=== PATIENT | male | born 1985 | race Caucasian/White ===

== ENCOUNTER 2017-03-19 16:01 | Emergency (ER) | payer SELFPAY ==
--- NOTE | 2017-03-19 16:53 | EDM.PDOC ---
ED HPI GENERAL MEDICAL PROBLEM - General Chief Complaint: Fever Stated Complaint: COLD,COUGHING Time Seen by Provider: 03/19/17 16:16 - History of Present Illness INITIAL COMMENTS - FREE TEXT/NARRATIVE: HISTORY AND PHYSICAL: History of present illness: Patient is a 31-year-old white male presents with concern of congestion and body aches sore throat states she's been exposed influenza A that his sister had he denies influenza immunization status had tactile fever denies vomiting or diarrhea Review of systems: As per history of present illness and below otherwise all systems reviewed and negative. Past medical history: As per history of present illness and as reviewed below otherwise noncontributory. Surgical history: As per history of present illness and as reviewed below otherwise noncontributory. Social history: No reported history of drug or alcohol abuse. Family history: As per history of present illness and as reviewed below otherwise noncontributory. Physical exam: HEENT: Atraumatic, normocephalic, pupils reactive, negative for conjunctival pallor or scleral icterus, mucous membranes moist, throat injected no pustular exudates, neck supple, nontender, trachea midline. Lungs: Clear to auscultation, breath sounds equal bilaterally, chest nontender. Heart: S1S2, regular, negative for clicks, rubs, or JVD. Abdomen: Soft, nondistended, nontender. Negative for masses or hepatosplenomegaly. Negative for costovertebral tenderness. Pelvis: Stable nontender. Genitourinary: Deferred. Rectal: Deferred. Extremities: Atraumatic, negative for cords or calf pain. Neurovascular unremarkable. Neuro: Awake, alert, oriented. Cranial nerves II through XII unremarkable. Cerebellum unremarkable. Motor and sensory unremarkable throughout. Exam nonfocal. Diagnostics: Influenza screen rapid strep Therapeutics: None Impression: #1 viral syndrome Definitive disposition and diagnosis as appropriate pending reevaluation and review of above. - Related Data Allergies Allergy/AdvReac Type Severity Reaction Status Date / Time No Known Allergies Allergy Verified 03/19/17 16:51 Home Meds: Home Meds . [No Known Home Meds] 03/19/17 [History] Past Medical History - Past Health History Medical/Surgical History: Denies Medical/Surgical History HEENT History: Reports: None Cardiovascular History: Reports: None Respiratory History: Reports: None Gastrointestinal History: Reports: None Genitourinary History: Reports: None Musculoskeletal History: Reports: Other (See Below) Other Musculoskeletal History: spine sx, degerative dsk dse. Neurological History: Reports: None Psychiatric History: Reports: Anxiety, Depression Hematologic History: Reports: None Immunologic History: Reports: None Oncologic (Cancer) History: Reports: None Dermatologic History: Reports: None - Infectious Disease History Infectious Disease History: Reports: None - Past Surgical History Head Surgeries/Procedures: Reports: None HEENT Surgical History: Reports: None Cardiovascular Surgical History: Reports: None GI Surgical History: Reports: None Musculoskeletal Surgical History: Reports: None Social & Family History - Tobacco Use Smoking Status *Q: Current Some Day Smoker Years of Tobacco use: 15 Packs/Tins Daily: 0.3 - Alcohol Use Days Per Week of Alcohol Use: 1 Number of Drinks Per Day: 2 Total Drinks Per Week: 2 - Recreational Drug Use Recreational Drug Use: Yes Drug Use in Last 12 Months: Yes Recreational Drug Type: Reports: Amphetamines (Speed), Marijuana/Hashish ED ROS GENERAL - Review of Systems Review Of Systems: ROS reveals no pertinent complaints other than HPI. ED EXAM, GENERAL - Physical Exam Exam: See Below (See dictation) Course - Vital Signs Last Recorded V/S: Last Vital Signs Temp 35.9 C 03/19/17 16:51 Pulse 101 H 03/19/17 16:51 Resp 18 03/19/17 16:51 BP 134/81 03/19/17 16:51 Pulse Ox 97 03/19/17 16:51 - Orders/Labs/Meds Orders: Active Orders 24 hr Category Date Time Status CULTURE STREP A CONFIRMATION [RM] Stat Lab 03/19/17 16:57 Results STREP SCRN A RAPID W CULT CONF [RM] Stat Lab 03/19/17 16:57 Results Departure - Departure Time of Disposition: 18:04 Disposition: Home, Self-Care 01 Condition: Good Clinical Impression: Influenza - Discharge Information Referrals: PCP,None [Primary Care Provider] - Forms: ED Department Discharge Additional Instructions: The following information is given to patients seen in the emergency department who are being discharged to home. This information is to outline your options for follow-up care. We provide all patients seen in our emergency department with a follow-up referral. The need for follow-up, as well as the timing and circumstances, are variable depending upon the specifics of your emergency department visit. If you don't have a primary care physician on staff, we will provide you with a referral. We always advise you to contact your personal physician following an emergency department visit to inform them of the circumstance of the visit and for follow-up with them and/or the need for any referrals to a consulting specialist. The emergency department will also refer you to a specialist when appropriate. This referral assures that you have the opportunity for followup care with a specialist. All of these measure are taken in an effort to provide you with optimal care, which includes your followup. Under all circumstances we always encourage you to contact your private physician who remains a resource for coordinating your care. When calling for followup care, please make the office aware that this follow-up is from your recent emergency room visit. If for any reason you are refused follow-up, please contact the [facility] emergency department at and asked to speak to the emergency department charge nurse. Tamiflu as prescribed push fluids Motrin and Tylenol as directed and return as needed as discussed - My Orders Last 24 Hours: My Active Orders 03/19/17 16:57 CULTURE STREP A CONFIRMATION [RM] Stat STREP SCRN A RAPID W CULT CONF [RM] Stat - Assessment/Plan Last 24 Hours: My Active Orders 03/19/17 16:57 CULTURE STREP A CONFIRMATION [RM] Stat STREP SCRN A RAPID W CULT CONF [] Stat
[2017-03-19 18:21] VITALS: BP 122/78
== END 2017-03-19 18:18 | disposition home or self-care (01) ==
LOC: MW.ED 16:01
DX: J10.1 Influenza due to other identified influenza virus with other respiratory manifestations (principal); B34.9 Viral infection, unspecified; F17.210 Nicotine dependence, cigarettes, uncomplicated
CPT/HCPCS: 87081; 87804; 87880; 99283

== ENCOUNTER 2018-11-13 10:08 | Emergency (ER) | payer SELFPAY ==
[2018-11-13] MEDS ORDERED: Sodium Chloride 0.9% 2.5 ML Syringe FLUSH PRN ×2 (10:41)
[2018-11-13] MEDS ORDERED: Sodium Chloride 0.9% 10 ML Syringe FLUSH PRN ×2 (10:41)
[2018-11-13] MEDS ORDERED: diphenhydrAMINE 50 MG/ML SDV IVPUSH ONE (10:41)
[2018-11-13] MEDS ORDERED: Ondansetron 4 MG/2 ML SDV IVPUSH ONE (10:41)
[2018-11-13] MEDS ORDERED: Sodium Chloride 0.9% 1,000 ML IV ONE (10:41)
[2018-11-13] MEDS ORDERED: Ketorolac 30 MG/ML SDV IVPUSH ONE (10:41)
[2018-11-13] MEDS ORDERED: Metoclopramide 10 MG/2 ML SDV IVPUSH ONE (10:41)
--- NOTE | 2018-11-13 10:41 | EDM.PDOC ---
ED HPI GENERAL MEDICAL PROBLEM - General Chief Complaint: Headache Stated Complaint: MIGRAINE Time Seen by Provider: 11/13/18 10:41 Source of Information: Reports: Patient History Limitations: Reports: No Limitations - History of Present Illness INITIAL COMMENTS - FREE TEXT/NARRATIVE: HISTORY AND PHYSICAL: History of present illness: Patient is a 32-year-old male presents to the ED with complaint migraine x 4 days. Patient states he has had headaches like this many times in the past but has never actually been diagnosed with migraines. He states he's been taking exedrin, tylenol, ibuprofen without relief. He states he has throbbing pain starting in the left occiput radiating up the side of his head and behind the eye. He states the throbbing is worse with walking, he has photophobia, and had nausea and vomiting 2 days ago. He denies head or neck injury, fevers, chills. Review of systems: As per history of present illness and below otherwise all systems reviewed and negative. Past medical history: As per history of present illness and as reviewed below otherwise noncontributory. Surgical history: As per history of present illness and as reviewed below otherwise noncontributory. Social history: No reported history of drug or alcohol abuse. Family history: As per history of present illness and as reviewed below otherwise noncontributory. Physical exam: General: Patient sitting comfortably in no acute distress and nontoxic appearing HEENT: Atraumatic, normocephalic, pupils reactive, negative for conjunctival pallor or scleral icterus, mucous membranes moist, throat clear, neck supple, nontender, trachea midline. No meningeal signs. Lungs: Clear to auscultation, breath sounds equal bilaterally, chest nontender. Heart: S1S2, regular, negative for clicks, rubs, or overt murmur. Abdomen: Soft, nondistended, nontender. Negative for masses or hepatosplenomegaly. Negative for costovertebral tenderness. No rigidity, rebound , guarding. Pelvis: Stable nontender. Genitourinary: Deferred. Rectal: Deferred. Extremities: Atraumatic, negative for cords or calf pain. Neurovascular unremarkable. Neuro: Awake, alert, oriented. Cranial nerves II through XII unremarkable. Cerebellum unremarkable. Motor and sensory unremarkable throughout. Exam nonfocal. Notes: Diagnostics: none Therapeutics: 1L NS IV 4mg Zofran IV 10mg Reglan IV 50mg Benadryl IV 30mg Toradol IV Prescriptions: Impression: Headache Plan: Rest and drink plenty of fluids and alternate Tylenol and Motrin as needed Follow-up with primary care provider Return to ED as needed as discussed Definitive disposition and diagnosis as appropriate pending reevaluation and review of above. Headache Pain Score (Numeric/FACES): 9 - Related Data Allergies Allergy/AdvReac Type Severity Reaction Status Date / Time No Known Allergies Allergy Verified 11/13/18 10:33 Home Meds: Home Meds . [No Known Home Meds] 03/19/17 [History] Past Medical History - Past Health History Medical/Surgical History: Denies Medical/Surgical History HEENT History: Reports: None Cardiovascular History: Reports: None Respiratory History: Reports: None Gastrointestinal History: Reports: None Genitourinary History: Reports: None Musculoskeletal History: Reports: Other (See Below) Other Musculoskeletal History: spine sx, degerative dsk dse. Neurological History: Reports: None Psychiatric History: Reports: Anxiety, Depression Hematologic History: Reports: None Immunologic History: Reports: None Oncologic (Cancer) History: Reports: None Dermatologic History: Reports: None - Infectious Disease History Infectious Disease History: Reports: None - Past Surgical History Head Surgeries/Procedures: Reports: None HEENT Surgical History: Reports: None Cardiovascular Surgical History: Reports: None GI Surgical History: Reports: None Musculoskeletal Surgical History: Reports: None Social & Family History - Family History Family Medical History: Noncontributory - Tobacco Use Smoking Status *Q: Current Every Day Smoker Years of Tobacco use: 15 Packs/Tins Daily: 0.5 - Caffeine Use Caffeine Use: Reports: Coffee - Recreational Drug Use Recreational Drug Use: No ED ROS GENERAL - Review of Systems Review Of Systems: ROS reveals no pertinent complaints other than HPI. - Physical Exam Exam: See Below (see dictation) Course - Vital Signs Last Recorded V/S: Last Vital Signs Temp 96.9 F 11/13/18 10:33 Pulse 86 11/13/18 10:33 Resp 18 11/13/18 10:33 BP 162/95 H 11/13/18 10:33 Pulse Ox 99 11/13/18 10:33 - Orders/Labs/Meds Orders: Active Orders 24 hr Category Date Time Status Sodium Chloride 0.9% [Normal Saline] 1,000 ml Med 11/13/18 10:41 Active IV STAT Sodium Chloride 0.9% [Saline Flush] Med 11/13/18 10:41 Active 10 ml FLUSH ASDIRECTED PRN Sodium Chloride 0.9% [Saline Flush] Med 11/13/18 10:41 Active 10 ml FLUSH ASDIRECTED PRN Sodium Chloride 0.9% [Saline Flush] Med 11/13/18 10:41 Active 2.5 ml FLUSH ASDIRECTED PRN Sodium Chloride 0.9% [Saline Flush] Med 11/13/18 10:41 Active 2.5 ml FLUSH ASDIRECTED PRN Saline Lock Insert [OM.PC] Stat Oth 11/13/18 10:41 Ordered Medication Orders Sodium Chloride (Normal Saline) 1,000 mls @ 999 mls/hr IV STAT ONE Stop: 11/13/18 11:41 Last Admin: 11/13/18 10:47 Dose: 999 mls/hr Sodium Chloride (Saline Flush) 10 ml FLUSH ASDIRECTED PRN PRN Reason: Keep Vein Open Last Admin: 11/13/18 10:49 Dose: 10 ml Sodium Chloride (Saline Flush) 2.5 ml FLUSH ASDIRECTED PRN PRN Reason: Keep Vein Open Last Admin: 11/13/18 10:49 Dose: 2.5 ml Sodium Chloride (Saline Flush) 10 ml FLUSH ASDIRECTED PRN PRN Reason: Keep Vein Open Last Admin: 11/13/18 10:49 Dose: 10 ml Sodium Chloride (Saline Flush) 2.5 ml FLUSH ASDIRECTED PRN PRN Reason: Keep Vein Open Last Admin: 11/13/18 10:50 Dose: 2.5 ml Meds: Medications Generic Name Dose Route Start Last Admin Trade Name Freq PRN Reason Stop Dose Admin Sodium Chloride 1,000 mls @ 999 mls/hr 11/13/18 10:41 11/13/18 10:47 Normal Saline IV 11/13/18 11:41 999 mls/hr STAT ONE Administration Sodium Chloride 10 ml 11/13/18 10:41 11/13/18 10:49 Saline Flush FLUSH 10 ml ASDIRECTED PRN Administration Keep Vein Open Sodium Chloride 2.5 ml 11/13/18 10:41 11/13/18 10:49 Saline Flush FLUSH 2.5 ml ASDIRECTED PRN Administration Keep Vein Open Sodium Chloride 10 ml 11/13/18 10:41 11/13/18 10:49 Saline Flush FLUSH 10 ml ASDIRECTED PRN Administration Keep Vein Open Sodium Chloride 2.5 ml 11/13/18 10:41 11/13/18 10:50 Saline Flush FLUSH 2.5 ml ASDIRECTED PRN Administration Keep Vein Open Discontinued Medications Generic Name Dose Route Start Last Admin Trade Name Jeff PRN Reason Stop Dose Admin Diphenhydramine HCl 25 mg 11/13/18 10:41 11/13/18 10:49 Benadryl IVPUSH 11/13/18 10:42 25 mg ONETIME ONE Administration Ketorolac Tromethamine 30 mg 11/13/18 10:41 11/13/18 10:48 Toradol IVPUSH 11/13/18 10:42 30 mg ONETIME ONE Administration Metoclopramide HCl 10 mg 11/13/18 10:41 11/13/18 10:48 Reglan IVPUSH 11/13/18 10:42 10 mg ONETIME ONE Administration Ondansetron HCl 4 mg 11/13/18 10:41 11/13/18 10:48 Zofran IVPUSH 11/13/18 10:42 4 mg ONETIME ONE Administration Departure - Departure Time of Disposition: 11:28 Disposition: Home, Self-Care 01 Condition: Good Clinical Impression: Headache - Discharge Information Referrals: PCP,None [Primary Care Provider] - Forms: ED Department Discharge Additional Instructions: The following information is given to patients seen in the emergency department who are being discharged to home. This information is to outline your options for follow-up care. We provide all patients seen in our emergency department with a follow-up referral. The need for follow-up, as well as the timing and circumstances, are variable depending upon the specifics of your emergency department visit. If you don't have a primary care physician on staff, we will provide you with a referral. We always advise you to contact your personal physician following an emergency department visit to inform them of the circumstance of the visit and for follow-up with them and/or the need for any referrals to a consulting specialist. The emergency department will also refer you to a specialist when appropriate. This referral assures that you have the opportunity for follow-up care with a specialist. All of these measure are taken in an effort to provide you with optimal care, which includes your follow-up. Under all circumstances we always encourage you to contact your private physician who remains a resource for coordinating your care. When calling for follow-up care, please make the office aware that this follow-up is from your recent emergency room visit. If for any reason you are refused follow-up, please contact the [facility] Emergency Department at and asked to speak to the emergency department charge nurse. [facility] [address] [place] [address] [id number] [address] [id number] Rest and drink plenty of fluids and alternate Tylenol and Motrin as needed Follow-up with primary care provider Return to ED as needed as discussed - My Orders Last 24 Hours: My Active Orders 11/13/18 10:41 Sodium Chloride 0.9% [Normal Saline] 1,000 ml IV STAT Sodium Chloride 0.9% [Saline Flush] 10 ml FLUSH ASDIRECTED PRN Sodium Chloride 0.9% [Saline Flush] 10 ml FLUSH ASDIRECTED PRN Sodium Chloride 0.9% [Saline Flush] 2.5 ml FLUSH ASDIRECTED PRN Sodium Chloride 0.9% [Saline Flush] 2.5 ml FLUSH ASDIRECTED PRN Saline Lock Insert [OM.PC] Stat - Assessment/Plan Last 24 Hours: My Active Orders 11/13/18 10:41 Sodium Chloride 0.9% [Normal Saline] 1,000 ml IV STAT Sodium Chloride 0.9% [Saline Flush] 10 ml FLUSH ASDIRECTED PRN Sodium Chloride 0.9% [Saline Flush] 10 ml FLUSH ASDIRECTED PRN Sodium Chloride 0.9% [Saline Flush] 2.5 ml FLUSH ASDIRECTED PRN Sodium Chloride 0.9% [Saline Flush] 2.5 ml FLUSH ASDIRECTED PRN Saline Lock Insert [OM.PC] Stat
[2018-11-13 11:30] VITALS: BP 127/89; PULSE 72
== END 2018-11-13 11:34 | disposition home or self-care (01) ==
LOC: MW.ED 10:08
DX: R51 Headache (principal); F17.210 Nicotine dependence, cigarettes, uncomplicated
CPT/HCPCS: 96361; 96374; 96375; 99283; J1200; J1885; J2405; J2765; J7040

== ENCOUNTER 2020-01-16 10:02 | Emergency (ER) | payer SELFPAY ==
[2020-01-16] MEDS ORDERED: Lidocaine 1% 10 ML MDV INJECT ONE (10:33)
--- NOTE | 2020-01-16 10:53 | EDM.PDOC ---
ED HPI GENERAL MEDICAL PROBLEM - General Chief Complaint: General Stated Complaint: ABSCESS LOWER PELVIC AREA Time Seen by Provider: 01/16/20 10:08 Source of Information: Reports: Patient History Limitations: Reports: No Limitations - History of Present Illness INITIAL COMMENTS - FREE TEXT/NARRATIVE: Presents reporting a skin abscess on his lower abdomen. He has had skin absce sses over the the perineal area in the past. On this occasion, he had what sounds like a pustule which he incised and drained on his own last night. The patient shaves his perineal area and has numerous diminutive folliculitis scabs. He is otherwise healthy without chronic medical problems except hypertension. He does not treat his hypertension. Does not have diabetes. He smokes cigarettes. No fevers, chills, nausea. left index finger Pain Score (Numeric/FACES): 5 - Related Data Allergies Allergy/AdvReac Type Severity Reaction Status Date / Time No Known Allergies Allergy Verified 01/16/20 10:19 Home Meds: Home Meds Clindamycin HCl 1 cap PO TID #30 capsule 01/16/20 [Rx] Mupirocin [Centany] 30 gm TP BID #1 tube 01/16/20 [Rx] Past Medical History - Past Health History Medical/Surgical History: Denies Medical/Surgical History HEENT History: Reports: None Cardiovascular History: Reports: Hypertension Respiratory History: Reports: None Gastrointestinal History: Reports: None Genitourinary History: Reports: None Musculoskeletal History: Reports: Other (See Below) Other Musculoskeletal History: spine sx, degerative dsk dse. Neurological History: Reports: None Psychiatric History: Reports: Anxiety, Depression Hematologic History: Reports: None Immunologic History: Reports: None Oncologic (Cancer) History: Reports: None Dermatologic History: Reports: None - Infectious Disease History Infectious Disease History: Reports: None - Past Surgical History Head Surgeries/Procedures: Reports: None HEENT Surgical History: Reports: None Cardiovascular Surgical History: Reports: None GI Surgical History: Reports: None Musculoskeletal Surgical History: Reports: None Social & Family History - Family History Family Medical History: No Pertinent Family History - Caffeine Use Caffeine Use: Reports: Coffee - Recreational Drug Use Recreational Drug Use: No ED ROS GENERAL - Review of Systems Review Of Systems: Comprehensive ROS is negative, except as noted in HPI. ED EXAM, GENERAL - Physical Exam Exam: See Below Exam Limited By: No Limitations General Appearance: Alert, Mild Distress (due to pain) Ears: Normal External Exam Nose: Normal Inspection Throat/Mouth: Normal Inspection Head: Atraumatic, Normocephalic Neck: Normal Inspection Respiratory/Chest: No Respiratory Distress Cardiovascular: Normal Peripheral Pulses GI/Abdominal: Normal Bowel Sounds Extremities: Normal Inspection Neurological: Alert, Oriented Psychiatric: Normal Affect, Normal Mood Skin Exam: Warm, Dry, Normal Color, Rash (shaved perineum. Numerous diminuative folliculitis dry scabs.), Other (along the line of the upper public hair: 6cm firm erythematous, tender swelling without fluctuance. Center 0.5cm open area without drainage.) ED I&D PROCEDURES - I&D Site: lower abdomen Skin prep: Isopropyl Alcohol (Alcohol) Local anesthesia - Lidocaine (Xylocaine): 1% Plain Local Anesthetic Volume: 4cc Area Incised With: 11 Blade Drainage: Bloody Probed to Break Up Loculations: Yes Packed With: None Progress/Comments: blood drainage, no purulent, probed Course - Vital Signs Last Recorded V/S: Last Vital Signs Temp 36.1 C 01/16/20 10:23 Pulse 119 H 01/16/20 10:23 Resp 16 01/16/20 10:23 BP 150/96 H 01/16/20 10:23 Pulse Ox 100 01/16/20 10:23 - Orders/Labs/Meds Meds: Medications Discontinued Medications Generic Name Dose Route Start Last Admin Trade Name Jeff PRN Reason Stop Dose Admin Lidocaine HCl 10 ml 01/16/20 10:33 01/16/20 10:37 Xylocaine 1% INJECT 01/16/20 10:34 Not Given ONETIME ONE Lidocaine HCl 10 ml 01/16/20 10:37 Xylocaine-Mpf 1% INJECT 01/16/20 10:38 ONETIME ONE Departure - Departure Time of Disposition: 11:09 Disposition: Home, Self-Care 01 Condition: Good Clinical Impression: Abscess, Folliculitis - Discharge Information *PRESCRIPTION DRUG MONITORING PROGRAM REVIEWED*: Not Applicable *COPY OF PRESCRIPTION DRUG MONITORING REPORT IN PATIENT MARCIA: Not Applicable Instructions: Preventing MDRO Infections Referrals: PCP,None [Primary Care Provider] - [facility] [Outside] [facility] [Outside] Additional Instructions: The following information is given to patients seen in the emergency department who are being discharged to home. This information is to outline your options for follow-up care. We provide all patients seen in our emergency department with a follow-up referral. The need for follow-up, as well as the timing and circumstances, are variable depending upon the specifics of your emergency department visit. If you don't have a primary care physician on staff, we will provide you with a referral. We always advise you to contact your personal physician following an emergency department visit to inform them of the circumstance of the visit and for follow-up with them and/or the need for any referrals to a consulting specialist. The emergency department will also refer you to a specialist when appropriate. This referral assures that you have the opportunity for follow-up care with a specialist. All of these measure are taken in an effort to provide you with optimal care, which includes your follow-up. Under all circumstances we always encourage you to contact your private physician who remains a resource for coordinating your care. When calling for follow-up care, please make the office aware that this follow-up is from your recent emergency room visit. If for any reason you are refused follow-up, please contact the [facility] Emergency Department at and asked to speak to the emergency department charge nurse. 1. Take your antibiotic 3 times a day starting today when you pick it up. 2. Warm moist packs or warm shower to affected area 3-4 times a day for 20 minutes 3. Refrain from shaving pelvic area. Do not touch the skin abscess or folliculitis scabs. 4. MRSA eradication instructions after abscess is healed: 1. Wash entire body in shower with chlorhexidine (ask at Pharmacy) daily. 2. Wear fresh clothing daily. Launder in hot water and dry in the dryer. 3. Wipe down all surfaces in your home and auto, cell phone, commonly used items with bleach water or chlorhexidine. 4. Apply mupirocin to posterior nares with cotton tipped applicator twice a day. 5. Others in your household and pets should be treated as well. Sepsis Event Note (ED) - Evaluation Sepsis Screening Result: No Definite Risk - Focused Exam Vital Signs: Vital Signs Temp Pulse Resp BP Pulse Ox 01/16/20 10:23 36.1 C 119 H 16 150/96 H 100 11/17/20 10:21 36.1 C 131 H 16 150/96 H
[2020-01-16 11:32] VITALS: BP 158/103; PULSE 120
== END 2020-01-16 11:36 | disposition home or self-care (01) ==
LOC: MW.ED 10:02
DX: L02.211 Cutaneous abscess of abdominal wall (principal); L73.9 Follicular disorder, unspecified; I10 Essential (primary) hypertension; F17.210 Nicotine dependence, cigarettes, uncomplicated
CPT/HCPCS: 10060; 99282; J2001

== ENCOUNTER 2020-03-31 17:29 | Emergency (ER) | payer SELFPAY ==
--- NOTE | 2020-03-31 17:34 | EDM.PDOC ---
ED HPI GENERAL MEDICAL PROBLEM - General Chief Complaint: Back Pain or Injury Stated Complaint: MEDICAL CLEARANCE Time Seen by Provider: 03/31/20 17:30 Source of Information: Reports: Patient History Limitations: Reports: No Limitations - History of Present Illness INITIAL COMMENTS - FREE TEXT/NARRATIVE: 34-year-old male past medical history substance abuse, chronic low back pain presents for medical clearance for incarceration. 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 He has followed up with a neurosurgeon in the past and been told that he needs surgery but he does not want to have surgery. Patient states that he is worried about going into opioid withdrawal when he goes to penit[facility]. Lower Back Pain Score (Numeric/FACES): 8 - Related Data Allergies Allergy/AdvReac Type Severity Reaction Status Date / Time No Known Allergies Allergy Verified 03/31/20 17:41 Home Meds: Home Meds . [No Known Home Meds] 03/31/20 [History] Past Medical History - Past Health History Medical/Surgical History: Denies Medical/Surgical History HEENT History: Reports: None Cardiovascular History: Reports: Hypertension Respiratory History: Reports: None Gastrointestinal History: Reports: None Genitourinary History: Reports: None Musculoskeletal History: Reports: Other (See Below) Other Musculoskeletal History: spine sx, degerative dsk dse. Neurological History: Reports: None Psychiatric History: Reports: Anxiety, Depression Hematologic History: Reports: None Immunologic History: Reports: None Oncologic (Cancer) History: Reports: None Dermatologic History: Reports: None - Infectious Disease History Infectious Disease History: Reports: None - Past Surgical History Head Surgeries/Procedures: Reports: None HEENT Surgical History: Reports: None Cardiovascular Surgical History: Reports: None GI Surgical History: Reports: None Musculoskeletal Surgical History: Reports: None Social & Family History - Family History Family Medical History: No Pertinent Family History - Caffeine Use Caffeine Use: Reports: Coffee ED ROS GENERAL - Review of Systems Review Of Systems: Comprehensive ROS is negative, except as noted in HPI. ED EXAM, GENERAL - Physical Exam Exam: See Below Exam Limited By: No Limitations General Appearance: Alert, WD/WN, No Apparent Distress Throat/Mouth: Normal Voice, No Airway Compromise Head: Atraumatic, Normocephalic Neck: Normal Inspection Respiratory/Chest: No Respiratory Distress, No Accessory Muscle Use Cardiovascular: Normal Peripheral Pulses, Regular Rate, Rhythm Extremities: Normal Inspection Neurological: Alert, Normal Gait Psychiatric: Normal Affect, Normal Mood Skin Exam: Warm, Dry, Intact, Normal Color Course - Vital Signs Last Recorded V/S: Last Vital Signs Temp 98.2 F 03/31/20 17:41 Pulse 100 03/31/20 17:41 Resp 18 03/31/20 17:41 BP 169/98 H 03/31/20 17:41 Pulse Ox 100 03/31/20 17:41 - Orders/Labs/Meds Orders: Active Orders 24 hr Category Date Time Status Acetaminophen/oxyCODONE [Percocet 325-5 MG] Med 03/31/20 17:45 Once 2 tab PO ONETIME ONE Meds: Medications Discontinued Medications Generic Name Dose Route Start Last Admin Trade Name Jeff PRN Reason Stop Dose Admin Oxycodone/Acetaminophen 2 tab 03/31/20 17:45 Percocet 325-5 Mg PO 03/31/20 17:46 ONETIME ONE - Re-Assessments/Exams Free Text/Narrative Re-Assessment/Exam: 03/31/20 17:35 Patient presents for chronic back pain and medical clearance. No evidence of acute pathology. Will discharge with PMD follow-up. Patient is fit for confinement. Will give 10 mg Percocet in the emergency department to help with withdrawal symptoms and with chronic low back pain. Departure - Departure Time of Disposition: 17:35 Disposition: DC/Tfer to Court of Law En 21 Condition: Good Clinical Impression: Chronic back pain Qualifiers: Back pain location: low back pain Back pain laterality: unspecified Sciatica presence: unspecified whether sciatica present Qualified Code(s): M54.5 - Low back pain - Discharge Information Instructions: Chronic Back Pain, [id number] Referrals: PCP,None [Primary Care Provider] - Forms: ED Department Discharge Additional Instructions: The following information is given to patients seen in the emergency department who are being discharged to home. This information is to outline your options for follow-up care. We provide all patients seen in our emergency department with a follow-up referral. The need for follow-up, as well as the timing and circumstances, are variable depending upon the specifics of your emergency department visit. If you don't have a primary care physician on staff, we will provide you with a referral. We always advise you to contact your personal physician following an emergency department visit to inform them of the circumstance of the visit and for follow-up with them and/or the need for any referrals to a consulting specialist. The emergency department will also refer you to a specialist when appropriate. This referral assures that you have the opportunity for follow-up care with a specialist. All of these measure are taken in an effort to provide you with optimal care, which includes your follow-up. Under all circumstances we always encourage you to contact your private physician who remains a resource for coordinating your care. When calling for follow-up care, please make the office aware that this follow-up is from your recent emergency room visit. If for any reason you are refused follow-up, please contact the [facility] Emergency Department at and asked to speak to the emergency department charge nurse. Please follow up with your primary care physician. If you do not have a primary care physician, see below: [facility] [address] [place] [id number] [facility] [address] [place] [id number] [facility] [address] [place] [id number] Sepsis Event Note (ED) - Focused Exam Vital Signs: Vital Signs Temp Pulse Resp BP Pulse Ox 03/31/20 17:41 98.2 F 100 18 169/98 H 100 - My Orders Last 24 Hours: My Active Orders 03/31/20 17:45 Acetaminophen/oxyCODONE [Percocet 325-5 MG] 2 tab PO ONETIME ONE - Assessment/Plan Last 24 Hours: My Active Orders 03/31/20 17:45 Acetaminophen/oxyCODONE [Percocet 325-5 MG] 2 tab PO ONETIME ONE
[2020-03-31 17:43] VITALS: BP 169/98; PULSE 100
[2020-03-31] MEDS ORDERED: Acetaminophen/oxyCODONE 325-5 MG Tab PO ONE (17:45)
== END 2020-03-31 17:56 ==
LOC: MW.ED 17:29
DX: M54.5 Low back pain (principal); G89.29 Other chronic pain; I10 Essential (primary) hypertension
CPT/HCPCS: 99283; A9270

== ENCOUNTER 2020-05-18 22:48 | Emergency (ER) | payer SELFPAY ==
[2020-05-18] MEDS ORDERED: Clindamycin HCl 150 MG Cap PO ONE (23:50)
[2020-05-18] MEDS ORDERED: Ketorolac 30 MG/ML SDV IM ONE (23:50)
--- NOTE | 2020-05-18 23:56 | EDM.PDOC ---
ED HPI GENERAL MEDICAL PROBLEM - General Chief Complaint: ENT Problem Stated Complaint: ABCESS TOOTH Time Seen by Provider: 05/18/20 23:11 - History of Present Illness INITIAL COMMENTS - FREE TEXT/NARRATIVE: History of present illness: [] Is chronic carious teeth with pain. For the last day or 2 has began to have swelling about the left side of his face and pain around his ear. The patient has multiple caries but he points to tooth #11 and says that that one hurts now. Is little puffiness under the left eye. He has no trismus or trouble handling secretions or voice change. He has no history of a heart murmur. Review of systems: As per history of present illness and below otherwise all systems reviewed and negative. Past medical history: As per history of present illness and as reviewed below otherwise noncontr ibutory. Surgical history: As per history of present illness and as reviewed below otherwise noncontributory. Social history: No reported history of drug or alcohol abuse. Family history: As per history of present illness and as reviewed below otherwise noncontributory. Physical exam: Constitutional - well developed, well-nourished and in no acute distress HEENT -we will carious and missing teeth. Tenderness around tooth #10 and 11.. Normocephalic, no evidence of trauma - external nose and mouth normal - no mass in neck and no JVD - mucosae moist erythema and swelling over the zygoma on the left. EYES - full EOM, PERRL, no icterus - no evidence of inflammation, injection, or drainage Respiratory - no respiratory distress, equal bilateral expansion, lungs clear to auscultation and no abnormal lung sounds Cardiovascular - Regular Rhythm with S1 and S2 appreciated and no murmur, gallop or rub. Musculoskeletal no gross deformity of long bones or joints - no tenderness, swelling or edema Neurologic - Alert and oriented times four - CN II-XII grossly intact - motor sensory and coordination symmetrically normal Psychiatric - appropriate mood and affect with normal thought content Hematologic - No petechiae or purpura - mucosa appropriate color and sclera not pale - normal nail bed color and refill Integument - no rash or evidence of trauma - normal turgor Diagnostics: [] Therapeutics: [] Impression: [] Plan: [] Definitive disposition and diagnosis as appropriate pending reevaluation and review of above. left jaw Pain Score (Numeric/FACES): 9 - Related Data Allergies Allergy/AdvReac Type Severity Reaction Status Date / Time No Known Allergies Allergy Verified 05/18/20 23:14 Home Meds: Home Meds Acetaminophen/Codeine [Tylenol with Codeine No.3 300MG/30MG] 2 tab PO Q4H PRN #14 tab 05/18/20 [Rx] Clindamycin HCl 300 mg PO TID #30 capsule 05/18/20 [Rx] Past Medical History - Past Health History Medical/Surgical History: Denies Medical/Surgical History HEENT History: Reports: None Cardiovascular History: Reports: Hypertension Respiratory History: Reports: None Gastrointestinal History: Reports: None Genitourinary History: Reports: None Musculoskeletal History: Reports: Other (See Below) Other Musculoskeletal History: spine sx, degerative dsk dse. Neurological History: Reports: None Psychiatric History: Reports: Anxiety, Depression Hematologic History: Reports: None Immunologic History: Reports: None Oncologic (Cancer) History: Reports: None Dermatologic History: Reports: None - Infectious Disease History Infectious Disease History: Reports: None - Past Surgical History Head Surgeries/Procedures: Reports: None HEENT Surgical History: Reports: None Cardiovascular Surgical History: Reports: None GI Surgical History: Reports: None Musculoskeletal Surgical History: Reports: None Social & Family History - Family History Family Medical History: No Pertinent Family History - Tobacco Use Packs/Tins Daily: 1 - Caffeine Use Caffeine Use: Reports: None - Recreational Drug Use Recreational Drug Use: No ED ROS GENERAL - Review of Systems Review Of Systems: Comprehensive ROS is negative, except as noted in HPI. ED EXAM, GENERAL - Physical Exam Exam: See Below Free Text/Narrative:: My physical exam is in the HPI Course - Vital Signs Last Recorded V/S: Last Vital Signs Temp 36.8 C 05/18/20 23:10 Pulse 110 H 05/18/20 23:10 Resp 18 05/18/20 23:10 BP 142/89 H 05/18/20 23:10 Pulse Ox 98 05/18/20 23:10 - Orders/Labs/Meds Meds: Medications Discontinued Medications Generic Name Dose Route Start Last Admin Trade Name Freq PRN Reason Stop Dose Admin Clindamycin HCl 300 mg 05/18/20 23:50 Clindamycin Hcl 150 Mg Cap PO 05/18/20 23:51 ONETIME ONE Ketorolac Tromethamine 30 mg 05/18/20 23:50 Ketorolac 30 Mg/Ml Sdv IM 05/18/20 23:51 ONETIME ONE Departure - Departure Time of Disposition: 23:53 Disposition: Home, Self-Care 01 Condition: Good Clinical Impression: Caries, Periodontal disease, Dentalgia - Discharge Information Prescriptions: Clindamycin HCl 300 mg PO TID #30 capsule Acetaminophen/Codeine [Tylenol with Codeine No.3 300MG/30MG] 2 tab PO Q4H PRN #14 tab PRN Reason: Pain (Moderate 4-6) Instructions: Acute Pain, Adult Referrals: PCP,None [Primary Care Provider] - Additional Instructions: See dentist as soon as possible. If your face swells more or you have trouble opening your mouth or breathing or talking you should return immediately as an emergency. [facility] [address] [place] [address] [place] [address] The following information is given to patients seen in the emergency department who are being discharged to home. This information is to outline your options for follow-up care. We provide all patients seen in our emergency department with a follow-up referral. The need for follow-up, as well as the timing and circumstances, are variable depending upon the specifics of your emergency department visit. If you don't have a primary care physician on staff, we will provide you with a referral. We always advise you to contact your personal physician following an emergency department visit to inform them of the circumstance of the visit and for follow-up with them and/or the need for any referrals to a consulting specialist. The emergency department will also refer you to a specialist when appropriate. This referral assures that you have the opportunity for follow-up care with a specialist. All of these measure are taken in an effort to provide you with optimal care, which includes your follow-up. Under all circumstances we always encourage you to contact your private physician who remains a resource for coordinating your care. When calling for follow-up care, please make the office aware that this follow-up is from your recent emergency room visit. If for any reason you are refused follow-up, please contact the [facility] Emergency Department at and asked to speak to the emergency department charge nurse. Sepsis Event Note (ED) - Evaluation Sepsis Screening Result: No Definite Risk - Focused Exam Vital Signs: Vital Signs Temp Pulse Resp BP Pulse Ox 05/18/20 23:10 36.8 C 110 H 18 142/89 H 98
[2020-05-19 00:10] VITALS: BP 135/101; PULSE 105
== END 2020-05-19 00:04 | disposition home or self-care (01) ==
LOC: MW.ED 22:48
DX: K02.9 Dental caries, unspecified (principal); I10 Essential (primary) hypertension; Z72.0 Tobacco use
CPT/HCPCS: 96372; 99282; A9270; J1885; 99283

== ENCOUNTER 2021-02-04 13:19 | Emergency (ER) | payer OTHER ==
[2021-02-04 14:01] VITALS: BP 164/138; PULSE 104
--- NOTE | 2021-02-04 14:38 | EDM.PDOC ---
ED HPI GENERAL MEDICAL PROBLEM - General Chief Complaint: ENT Problem Stated Complaint: SORE NOSE Time Seen by Provider: 02/04/21 13:59 Source of Information: Reports: Patient History Limitations: Reports: No Limitations - History of Present Illness INITIAL COMMENTS - FREE TEXT/NARRATIVE: Patient is a 35-year-old female presents today for possible dental abscess. Patient's been having difficulty seeing for the past few years and cannot see a dentist because of insurance issue. States he has no swelling to the upper gumline. States she has noted difficulty eating or drinking or swallowing. Gums Pain Score (Numeric/FACES): 4 - Related Data Allergies Allergy/AdvReac Type Severity Reaction Status Date / Time No Known Allergies Allergy Verified 02/04/21 13:56 Home Meds: Home Meds . [No Known Home Meds] 02/04/21 [History] Past Medical History - Past Health History Medical/Surgical History: Denies Medical/Surgical History HEENT History: Reports: None Cardiovascular History: Reports: Hypertension Respiratory History: Reports: None Gastrointestinal History: Reports: None Genitourinary History: Reports: None Musculoskeletal History: Reports: Other (See Below) Other Musculoskeletal History: spine sx, degerative dsk dse. Neurological History: Reports: None Psychiatric History: Reports: Anxiety, Depression Hematologic History: Reports: None Immunologic History: Reports: None Oncologic (Cancer) History: Reports: None Dermatologic History: Reports: None - Infectious Disease History Infectious Disease History: Reports: None - Past Surgical History Head Surgeries/Procedures: Reports: None HEENT Surgical History: Reports: None Cardiovascular Surgical History: Reports: None GI Surgical History: Reports: None Musculoskeletal Surgical History: Reports: None Social & Family History - Family History Family Medical History: No Pertinent Family History - Caffeine Use Caffeine Use: Reports: None - Recreational Drug Use Recreational Drug Use: No ED ROS ENT - Review of Systems Review Of Systems: See Below Constitutional: Reports: No Symptoms HEENT: Reports: Dental Pain Respiratory: Reports: No Symptoms Endocrine: Reports: No Symptoms GI/Abdominal: Reports: No Symptoms : Reports: No Symptoms Musculoskeletal: Reports: No Symptoms Skin: Reports: No Symptoms Neurological: Reports: No Symptoms Psychiatric: Reports: No Symptoms Hematologic/Lymphatic: Reports: No Symptoms Immunologic: Reports: No Symptoms ED EXAM, ENT - Physical Exam Exam: See Below Exam Limited By: No Limitations General Appearance: Alert, WD/WN, No Apparent Distress Eye Exam: Bilateral Eye: EOMI Mouth/Throat: Normal Inspection, Dental Pain, Dental Tenderness. No: Normal Gums, Normal Lips Neck: Normal Inspection Respiratory/Chest: No Respiratory Distress Neurological: Alert, Oriented, Normal Cognition, Normal Gait Course - Vital Signs Last Recorded V/S: Last Vital Signs Temp 98.6 F 02/04/21 13:57 Pulse 104 H 02/04/21 13:57 Resp 16 02/04/21 13:57 BP 164/138 H 02/04/21 13:57 Pulse Ox 99 02/04/21 13:57 Departure - Departure Time of Disposition: 14:37 Disposition: Home, Self-Care 01 Condition: Good Clinical Impression: Dental abscess - Discharge Information *PRESCRIPTION DRUG MONITORING PROGRAM REVIEWED*: Not Applicable *COPY OF PRESCRIPTION DRUG MONITORING REPORT IN PATIENT MARCIA: Not Applicable Instructions: Dental Abscess, [id number] Referrals: PCP,None [Primary Care Provider] - Additional Instructions: You were seen today for dental pain. We recommend that you follow-up with a dentist. The ER can only do limited things for you here you need to see a dentist to have this treated and taken care of. We will prescribe the antibiotic you can take in the interim continue to follow-up with your dentist. If you have any other concerning signs or symptoms please refer to return to the ED. The following information is given to patients seen in the emergency department who are being discharged to home. This information is to outline your options for follow-up care. We provide all patients seen in our emergency department with a follow-up referral. The need for follow-up, as well as the timing and circumstances, are variable depending upon the specifics of your emergency department visit. If you don't have a primary care physician on staff, we will provide you with a referral. We always advise you to contact your personal physician following an emergency department visit to inform them of the circumstance of the visit and for follow-up with them and/or the need for any referrals to a consulting specialist. The emergency department will also refer you to a specialist when appropriate. This referral assures that you have the opportunity for follow-up care with a specialist. All of these measure are taken in an effort to provide you with optimal care, which includes your follow-up. Under all circumstances we always encourage you to contact your private physician who remains a resource for coordinating your care. When calling for follow-up care, please make the office aware that this follow-up is from your recent emergency room visit. If for any reason you are refused follow-up, please contact the [facility] Emergency Department at and asked to speak to the emergency department charge nurse. Please follow up with your primary care physician. If you do not have a primary care physician, see below: [facility] [address] [place] [id number] [facility] [address] [place] [id number] Sepsis Event Note (ED) - Evaluation Sepsis Screening Result: No Definite Risk - Focused Exam Vital Signs: Vital Signs Temp Pulse Resp BP Pulse Ox 02/04/21 13:57 98.6 F 104 H 16 164/138 H 99 - Assessment/Plan Plan: Patient is a 35-year-old male presents today for dental pain. Patient looks to have a dental abscess. Will prescribe antibiotics and try to refer patient to the dentist to assist.
== END 2021-02-04 15:10 | disposition home or self-care (01) ==
LOC: MW.ED 13:19
DX: K04.7 Periapical abscess without sinus (principal)
CPT/HCPCS: 99282

== ENCOUNTER 2021-06-29 21:01 | Emergency (ER) | payer MEDICAID ==
[2021-06-29] MEDS ORDERED: Aspirin 81 MG Tab.Chew PO ONE (21:08)
[2021-06-29 22:02] LABS: BLOOD UREA NITROGEN,BUN 13 mg/dL (7.0-18.0); CARBON DIOXIDE,CO2 27.7 mmol/L (21.0-32.0); CHLORIDE,CL 105 mmol/L (98-107); GLUCOSE RANDOM 78 mg/dL (74-106); POTASSIUM,K 4.3 mmol/L (3.5-5.1); SODIUM,NA 143 mmol/L (136-148)
[2021-06-29 23:33] VITALS: BP 127/82; PULSE 98
== END 2021-06-29 23:33 | disposition home or self-care (01) ==
LOC: MW.ED 21:01
DX: R07.89 Other chest pain (principal); I10 Essential (primary) hypertension
CPT/HCPCS: 36415; 71045; 80053; 83735; 84484; 85025; 85610; 93005; 99285; A9270

== ENCOUNTER 2021-09-05 14:41 | Emergency (ER) | payer MEDICAID ==
[2021-09-05 15:37] VITALS: BP 149/99; PULSE 96
== END 2021-09-05 15:34 ==
LOC: MW.ED 14:41
DX: I10 Essential (primary) hypertension (principal)
CPT/HCPCS: 99283

== ENCOUNTER 2021-09-12 20:05 | Inpatient (IN) | payer MEDICAID ==
[2021-09-12] MEDS ORDERED: Sodium Chloride 0.9% 2.5 ML Syringe FLUSH PRN (20:28)
[2021-09-12] MEDS ORDERED: Sodium Chloride 0.9% 10 ML Syringe FLUSH PRN (20:28)
[2021-09-12] MEDS ORDERED: Piperacillin/Tazobactam 4.5 GM in Sodium Chloride 0.9% 100 ML IV ONE (20:29)
[2021-09-12] MEDS ORDERED: Sodium Chloride 0.9% 1,000 ML IV ONE (20:29)
[2021-09-12] MEDS ORDERED: Morphine 4 MG/ML VIAL IVPUSH ONE (20:32)
[2021-09-12] MEDS ORDERED: VANCOmycin 1.75 GM/350 ML 1.75 GM in Premix Bag 1 BAG IV ONE (21:30)
[2021-09-12 21:43] LABS: CARBON DIOXIDE,CO2 26.5 mmol/L (21.0-32.0); POTASSIUM,K 3.6 mmol/L (3.5-5.1)
[2021-09-12] MEDS ORDERED: Iopamidol 755 MG/ML 500 ML Multipack Bottle IVPUSH ONE (22:14)
[2021-09-12] MEDS ORDERED: Lidocaine/Epineph/Tetracaine 3 ML Syringe TOP ONE (22:56)
[2021-09-12] MEDS ORDERED: HYDROmorphone 1 MG/ML Syringe IVPUSH ONE (22:56)
[2021-09-12] MEDS ORDERED: Lidocaine 1% 5 ML VIAL INJECT ONE (22:57)
[2021-09-13] MEDS ORDERED: Sodium Chloride 0.9% 1,000 ML IV ONE ×2 (00:40)
[2021-09-13] MEDS ORDERED: Albuterol/Ipratropium 3.0-0.5 MG/3 ML Neb Soln NEB PRN (00:54)
[2021-09-13] MEDS ORDERED: Ondansetron 4 MG/2 ML SDV IVPUSH PRN (00:54)
[2021-09-13] MEDS: Pantoprazole 40 MG in Sodium Chloride 0.9% 10 ML IVPUSH SCH (02:07)
[2021-09-13] MEDS: Enoxaparin 40 MG/0.4 ML Syringe SUBCUT SCH (02:12)
[2021-09-13] MEDS: Acetaminophen 325 MG Tab PO PRN (02:31)
[2021-09-13] MEDS: Piperacillin/Tazobactam 3.375 GM in Sodium Chloride 0.9% 50 ML IV SCH ×3 (03:08→20:00)
[2021-09-13] MEDS: Lactated Ringers 1,000 ML IV SCH ×2 (03:48→13:46)
[2021-09-13] MEDS: Morphine 2 MG/ML SYRINGE IVPUSH PRN ×3 (05:16→16:25)
[2021-09-13 06:05] LABS: HEMOGLOBIN A1C 5.6 %
[2021-09-13 06:06] LABS: CARBON DIOXIDE,CO2 26.6 mmol/L (21.0-32.0); POTASSIUM,K 3.6 mmol/L (3.5-5.1)
[2021-09-14] MEDS: Enoxaparin 40 MG/0.4 ML Syringe SUBCUT SCH (00:03)
[2021-09-14] MEDS: Pantoprazole 40 MG in Sodium Chloride 0.9% 10 ML IVPUSH SCH (00:03)
[2021-09-14] MEDS: Lactated Ringers 1,000 ML IV SCH ×2 (00:04→09:40)
[2021-09-14] MEDS: Morphine 2 MG/ML SYRINGE IVPUSH PRN ×4 (00:14→21:27)
[2021-09-14] MEDS: Piperacillin/Tazobactam 3.375 GM in Sodium Chloride 0.9% 50 ML IV SCH ×3 (04:24→20:41)
[2021-09-14] MEDS: Acetaminophen 325 MG Tab PO PRN (05:49)
[2021-09-14 06:19] LABS: CARBON DIOXIDE,CO2 26.7 mmol/L (21.0-32.0)
[2021-09-14] MEDS: VANCOmycin 1.5 GM/300 ML 1.5 GM in Premix Bag 1 BAG IV SCH ×2 (09:36→21:31)
[2021-09-14] MEDS ORDERED: Ondansetron 4 MG/2 ML SDV IVPUSH PRN (11:52)
[2021-09-14] MEDS ORDERED: Albuterol 0.083% 2.5 MG/3 ML Neb Soln NEB PRN (11:52)
[2021-09-14] MEDS ORDERED: Metoclopramide 10 MG/2 ML SDV IVPUSH PRN (11:52)
[2021-09-14] MEDS ORDERED: Morphine 4 MG/ML VIAL IVPUSH PRN (11:52)
[2021-09-14] MEDS ORDERED: fentaNYL 50 MCG/ML SDV IVPUSH PRN (11:52)
[2021-09-14] MEDS ORDERED: HYDROmorphone 1 MG/ML Syringe IVPUSH PRN (11:52)
[2021-09-14] MEDS ORDERED: Naloxone 0.4 MG/ML SDV IVPUSH PRN (11:52)
[2021-09-14] MEDS ORDERED: fentaNYL 100 MCG/2 ML SDV ONE (13:34)
[2021-09-14] MEDS ORDERED: propofoL 0 ML ONE (13:34)
[2021-09-14] MEDS ORDERED: Lidocaine 2% 5 ML SDV ONE (13:35)
[2021-09-14] MEDS ORDERED: Propofol 200 MG/20 ML SDV ONE ×2 (13:35)
[2021-09-14] MEDS ORDERED: Succinylcholine/Sod PF 100 MG/5 ML SYRINGE IV ONE (13:35)
[2021-09-14] MEDS ORDERED: Ondansetron 4 MG/2 ML SDV ONE (13:38)
[2021-09-14] MEDS ORDERED: Bupivacaine 0.5% 10 ML SDV ONE (13:53)
[2021-09-14] MEDS ORDERED: Chloroprocaine 10 MG/ML 5 ML Amp ONE (13:54)
[2021-09-14] MEDS ORDERED: Midazolam 1 MG/ML 2 ML SDV ONE (13:58)
[2021-09-14] MEDS ORDERED: Dexmedetomidine 200 MCG/2 ML SDV ONE (14:08)
[2021-09-14] MEDS ORDERED: Water For Injection, Sterile 20 ML ONE ×2 (14:08→14:09)
[2021-09-14] MEDS ORDERED: Glycopyrrolate 0.2 MG/ML SDV ONE (14:13)
[2021-09-15] MEDS: Enoxaparin 40 MG/0.4 ML Syringe SUBCUT SCH (00:18)
[2021-09-15] MEDS: Pantoprazole 40 MG in Sodium Chloride 0.9% 10 ML IVPUSH SCH (00:18)
[2021-09-15] MEDS: Lactated Ringers 1,000 ML IV SCH (00:18)
[2021-09-15] MEDS: Morphine 2 MG/ML SYRINGE IVPUSH PRN ×2 (02:16→08:18)
[2021-09-15] MEDS: Piperacillin/Tazobactam 3.375 GM in Sodium Chloride 0.9% 50 ML IV SCH (03:36)
[2021-09-15 06:12] LABS: CARBON DIOXIDE,CO2 25.3 mmol/L (21.0-32.0); POTASSIUM,K 3.9 mmol/L (3.5-5.1)
[2021-09-15] MEDS ORDERED: oxyCODONE 5 MG Tab PO PRN (08:41)
[2021-09-15] MEDS ORDERED: Sodium Chloride 0.9% 10 ML Syringe FLUSH PRN (08:48)
[2021-09-15] MEDS ORDERED: Sodium Chloride 0.9% 2.5 ML Syringe FLUSH PRN (08:48)
[2021-09-15] MEDS ORDERED: Docusate Sodium 100 MG Cap PO SCH (09:00)
[2021-09-15] MEDS: VANCOmycin 1.5 GM/300 ML 1.5 GM in Premix Bag 1 BAG IV SCH (09:30)
[2021-09-15] MEDS ORDERED: Piperacillin/Tazobactam 3.375 GM in Sodium Chloride 0.9% 50 ML IV SCH (10:00)
[2021-09-15 11:42] VITALS: BP 119/90; PULSE 82
== END 2021-09-15 13:00 | disposition home or self-care (01) | DRG 872 ==
LOC: MW.ED 20:05 → MW.MS 09-13 00:39 → EEVIPCON 09-13 00:39
PROVIDERS: ADMIT Student in an Organized Health Care Education/Training Program; ATTEND Student in an Organized Health Care Education/Training Program
PROC: 0Y900ZZ Drainage of Right Buttock, Open Approach (ICD-10-PCS; principal; 2021-09-13)
PROC: 0J990ZZ Drainage of Buttock Subcutaneous Tissue and Fascia, Open Approach (ICD-10-PCS; 2021-09-14)
PROC: 0J9B0ZZ Drainage of Perineum Subcutaneous Tissue and Fascia, Open Approach (ICD-10-PCS; 2021-09-14)
DX: A41.9 Sepsis, unspecified organism (principal); K61.0 Anal abscess; L02.215 Cutaneous abscess of perineum; L03.317 Cellulitis of buttock; F17.210 Nicotine dependence, cigarettes, uncomplicated; I10 Essential (primary) hypertension; G43.909 Migraine, unspecified, not intractable, without status migrainosus; F41.9 Anxiety disorder, unspecified; F32.A Depression, unspecified; F19.10 Other psychoactive substance abuse, uncomplicated; Z87.442 Personal history of urinary calculi
CPT/HCPCS: 00902; 10060; 36415; 74177; 74177-26; 80048; 80053; 80202; 80305-QW; 83036; 83605; 83735; 84100; 85025; 85610; 87040; 87070; 87075; 87077; 87147; 87186; 87205; 93005; 93010; 96361; 96365; 96366; 96367; 96375; 99221; 99238; 99283; 99285-25; A9270-GY; C9113; J0131; J0330; J1170; J1650; J2250; J2270; J2400; J2405; J2543; J2704; J3010; J3370; J3490; J7030; J7050; J7120; Q9967

== ENCOUNTER 2021-09-26 19:05 | Emergency (ER) | payer MEDICAID ==
[2021-09-26] MEDS ORDERED: Lidocaine 1% with EPINEPHrine 1:100,000 10 ML MDV INJECT ONE (19:57)
[2021-09-27 02:41] VITALS: BP 136/85; PULSE 90
== END 2021-09-26 20:38 | disposition home or self-care (01) ==
LOC: MW.ED 19:05
DX: S01.01XA Laceration without foreign body of scalp, initial encounter (principal); I10 Essential (primary) hypertension; W01.10XA Fall on same level from slipping, tripping and stumbling with subsequent striking against unspecified object, initial encounter
CPT/HCPCS: 12001; 99282; 99283

== ENCOUNTER 2021-10-12 13:55 | Emergency (ER) | payer SELFPAY ==
[2021-10-12 14:38] VITALS: BP 162/82; PULSE 84
== END 2021-10-12 14:52 | disposition left against medical advice (07) ==
LOC: MW.ED 13:55
DX: Z53.21 Procedure and treatment not carried out due to patient leaving prior to being seen by health care provider (principal)

== ENCOUNTER 2021-10-16 17:46 | Emergency (ER) | payer SELFPAY ==
[2021-10-16] MEDS ORDERED: Sodium Chloride 0.9% 1,000 ML IV ONE ×2 (17:51→19:31)
[2021-10-16 18:41] LABS: BLOOD UREA NITROGEN,BUN 15 mg/dL (7.0-18.0); CHLORIDE,CL 104 mmol/L (98-107); ESTIMATED GFR 80 mL/min (>60); GLUCOSE RANDOM 189 mg/dL (74-106); POTASSIUM,K 3.5 mmol/L (3.5-5.1); SODIUM,NA 142 mmol/L (136-148)
[2021-10-16] MEDS ORDERED: Ketorolac 30 MG/ML SDV IVPUSH ONE (19:30)
[2021-10-16] MEDS ORDERED: Ondansetron 4 MG Tab.DIS PO ONE (20:49)
[2021-10-17 00:51] VITALS: BP 138/97; PULSE 93
== END 2021-10-16 21:50 | disposition home or self-care (01) ==
LOC: MW.ED 17:46
DX: T43.621A Poisoning by amphetamines, accidental (unintentional), initial encounter (principal); F15.10 Other stimulant abuse, uncomplicated; I10 Essential (primary) hypertension
CPT/HCPCS: 36415; 71045; 80053; 80305; 80307; 81001; 85025; 93005; 96361; 96374; 99285; A9270; J1885; J7030; 93010; 99284

== ENCOUNTER 2022-02-14 14:36 | Emergency (ER) | payer MEDICAID ==
[2022-02-14] MEDS ORDERED: Ketorolac 60 MG/2 ML SDV IM ONE (20:32)
[2022-02-14] MEDS ORDERED: Orphenadrine 60 MG/2 ML Inj IM ONE (20:32)
[2022-02-14 23:50] VITALS: BP 139/81; PULSE 81
== END 2022-02-14 23:00 | disposition home or self-care (01) ==
LOC: MW.ED 14:36
DX: M25.561 Pain in right knee (principal); I10 Essential (primary) hypertension
CPT/HCPCS: 73562; 96372; 99283; J1885; J2360

== ENCOUNTER 2022-04-04 02:17 | Emergency (ER) | payer MEDICAID ==
[2022-04-04 02:33] VITALS: PULSE 67
[2022-04-04 03:19] LABS: CARBON DIOXIDE,CO2 28.7 mmol/L (21.0-32.0); POTASSIUM,K 3.8 mmol/L (3.5-5.1)
[2022-04-04] MEDS ORDERED: Iopamidol 755 MG/ML 500 ML Multipack Bottle IVPUSH ONE (04:24)
[2022-04-04] MEDS ORDERED: Acetaminophen 500 MG Tab PO ONE (04:48)
[2022-04-04] MEDS ORDERED: Ketorolac 30 MG/ML SDV IVPUSH ONE (04:49)
[2022-04-04 05:56] VITALS: BP 134/86
== END 2022-04-04 05:55 | disposition home or self-care (01) ==
LOC: MW.ED 02:17
DX: R07.2 Precordial pain (principal); I10 Essential (primary) hypertension
CPT/HCPCS: 36415; 71046; 71275; 80053; 84484; 85025; 93005; 99284; Q9967; 93010

== ENCOUNTER 2022-05-20 10:41 | Emergency (ER) | payer MEDICAID ==
[2022-05-20 13:28] VITALS: BP 134/78; PULSE 85
== END 2022-05-20 13:26 | disposition home or self-care (01) ==
LOC: MW.ED 10:41
DX: S52.691A Other fracture of lower end of right ulna, initial encounter for closed fracture (principal); I10 Essential (primary) hypertension; W22.09XA Striking against other stationary object, initial encounter
CPT/HCPCS: 29125; 73090-26-RT; 73090-RT; 73100-26-RT; 73100-RT; 99283

== ENCOUNTER 2022-05-28 06:10 | Day surgery (SDC) | payer MEDICAID ==
[~2022-05-28 06:10] MED LIST: Lactated Ringers 1,000 ML IV SCH; ceFAZolin 2 GM in Sodium Chloride 0.9% 100 ML IV SCH
[2022-05-28] MEDS ORDERED: fentaNYL 50 MCG/ML SDV IVPUSH PRN (07:00)
[2022-05-28] MEDS ORDERED: Ondansetron 4 MG/2 ML SDV IVPUSH PRN (07:00)
[2022-05-28] MEDS ORDERED: Metoclopramide 10 MG/2 ML SDV IVPUSH PRN (07:00)
[2022-05-28] MEDS ORDERED: Naloxone 0.4 MG/ML SDV IVPUSH PRN (07:00)
[2022-05-28] MEDS ORDERED: HYDROmorphone 1 MG/ML Syringe IVPUSH PRN (07:00)
[2022-05-28] MEDS ORDERED: Albuterol 0.083% 2.5 MG/3 ML Neb Soln NEB PRN (07:00)
[2022-05-28] MEDS ORDERED: Morphine 2 MG/ML SYRINGE IVPUSH PRN (07:00)
[2022-05-28] MEDS ORDERED: Dexmedetomidine 200 MCG/2 ML SDV ONE (07:19)
[2022-05-28] MEDS ORDERED: Propofol 200 MG/20 ML SDV ONE ×2 (07:20→08:27)
[2022-05-28] MEDS ORDERED: fentaNYL 100 MCG/2 ML SDV ONE (07:20)
[2022-05-28] MEDS ORDERED: Ropivacaine 0.5% 5 MG/ML 30 ML SDV ONE (07:25)
[2022-05-28] MEDS ORDERED: Lidocaine 2% 5 ML SDV ONE (07:28)
[2022-05-28] MEDS ORDERED: Midazolam 1 MG/ML 2 ML SDV ONE (07:58)
[2022-05-28] MEDS ORDERED: Ketamine 500 mg/10 ML MDV ONE (08:07)
[2022-05-28] MEDS ORDERED: ceFAZolin 2 GM Vial ONE (08:10)
[2022-05-28] MEDS ORDERED: Magnesium Sulfate (4.06 MEQ/ML) 5 GM/10 ML SDV ONE (08:23)
[2022-05-28] MEDS ORDERED: Ketorolac 30 MG/ML SDV ONE (08:40)
[2022-05-28] MEDS ORDERED: Dexamethasone 4 MG/ML 5 ML MDV ONE (08:45)
[2022-05-28 11:04] VITALS: BP 102/64; PULSE 67
== END 2022-05-28 10:25 | disposition home or self-care (01) ==
LOC: MW.SDS 06:10
PROVIDERS: ATTEND Orthopaedic Surgery
DX: S52.601A Unspecified fracture of lower end of right ulna, initial encounter for closed fracture (principal); G62.9 Polyneuropathy, unspecified; F31.70 Bipolar disorder, currently in remission, most recent episode unspecified; I10 Essential (primary) hypertension; F17.210 Nicotine dependence, cigarettes, uncomplicated; Z79.899 Other long term (current) drug therapy; W22.8XXA Striking against or struck by other objects, initial encounter
CPT/HCPCS: 25545; 64415; 76000; J0690; J1885; J2250; J2704; J2795; J3475; J3490; J7120; J0131; J1100; J3010

== ENCOUNTER 2022-06-28 10:10 | Emergency (ER) | payer MEDICAID ==
[2022-06-28] MEDS ORDERED: Orphenadrine 60 MG/2 ML Inj IM STA (10:36)
[2022-06-28] MEDS ORDERED: Ketorolac 60 MG/2 ML SDV IM STA (10:36)
[2022-06-28 19:15] VITALS: BP 125/74; PULSE 81
== END 2022-06-28 12:32 | disposition home or self-care (01) ==
LOC: MW.ED 10:10
DX: S39.012A Strain of muscle, fascia and tendon of lower back, initial encounter (principal); M54.42 Lumbago with sciatica, left side; I10 Essential (primary) hypertension; F17.210 Nicotine dependence, cigarettes, uncomplicated; Z79.899 Other long term (current) drug therapy; X50.0XXA Overexertion from strenuous movement or load, initial encounter
CPT/HCPCS: 72100; 96372; 99283; J1885; J2360; 99284

== ENCOUNTER 2022-09-03 20:37 | Emergency (ER) | payer MEDICAID ==
[2022-09-03 21:20] VITALS: PULSE 83
[2022-09-03] MEDS ORDERED: Indomethacin 25 MG Cap PO ONE (21:45)
[2022-09-03 22:54] VITALS: BP 134/91
== END 2022-09-03 22:56 | disposition home or self-care (01) ==
LOC: MW.ED 20:37
DX: M79.89 Other specified soft tissue disorders (principal); I10 Essential (primary) hypertension
CPT/HCPCS: 73610; 73630; 93971; 99284; A9270; 99283

== ENCOUNTER 2022-11-01 22:11 | Emergency (ER) | payer MEDICAID ==
[2022-11-02] MEDS ORDERED: Ibuprofen 600 MG Tab PO ONE (00:34)
[2022-11-02 00:42] VITALS: BP 152/97; PULSE 82
== END 2022-11-02 00:41 | disposition home or self-care (01) ==
LOC: MW.ED 22:11
DX: Z02.89 Encounter for other administrative examinations (principal); M25.511 Pain in right shoulder; I10 Essential (primary) hypertension; F17.210 Nicotine dependence, cigarettes, uncomplicated; Z91.148 Patient's other noncompliance with medication regimen for other reason
CPT/HCPCS: 99283

== ENCOUNTER 2022-11-05 10:03 | Emergency (ER) | payer MEDICAID | END 2022-11-05 10:43 | disposition left against medical advice (07) | LOC: MW.ED 10:03 | DX: Z53.21 Procedure and treatment not carried out due to patient leaving prior to being seen by health care provider (principal) ==

== ENCOUNTER 2022-11-16 01:07 | Emergency (ER) | payer MEDICAID | END 2022-11-16 01:13 | disposition left against medical advice (07) | LOC: MW.ED 01:07 | DX: Z53.21 Procedure and treatment not carried out due to patient leaving prior to being seen by health care provider (principal) ==

== ENCOUNTER 2023-02-14 09:19 | Emergency (ER) | payer MEDICAID ==
[2023-02-14 09:55] VITALS: BP 102/81; PULSE 97
== END 2023-02-14 09:52 ==
LOC: MW.ED 09:19
DX: I10 Essential (primary) hypertension (principal); F17.210 Nicotine dependence, cigarettes, uncomplicated; Z79.899 Other long term (current) drug therapy
CPT/HCPCS: 99281; 99283

== ENCOUNTER 2023-04-14 16:00 | Emergency (ER) | payer SELFPAY ==
[2023-04-14 17:36] VITALS: BP 154/100; PULSE 106
== END 2023-04-14 17:35 ==
LOC: MW.ED 16:00
DX: S51.811A Laceration without foreign body of right forearm, initial encounter (principal); Z02.89 Encounter for other administrative examinations; I10 Essential (primary) hypertension; F19.10 Other psychoactive substance abuse, uncomplicated; Z79.899 Other long term (current) drug therapy; W26.8XXA Contact with other sharp object(s), not elsewhere classified, initial encounter
CPT/HCPCS: 99283

== ENCOUNTER 2023-07-20 10:49 | Emergency (ER) | payer SELFPAY ==
[2023-07-20] MEDS: Ketorolac 30 MG/ML SDV IVPUSH ONE ×2 (10:56→10:59)
[2023-07-20] MEDS: Sodium Chloride 0.9% 1,000 ML IV STA ×2 (10:58→13:08)
[2023-07-20] MEDS: Diphtheria,Pertussis(Acell),Tetanus Vaccine 0.5 ML Syringe IM ONE (10:58)
[2023-07-20 11:21] LABS: BASOPHILS ABSOLUTE AUTO 0.12 K/uL (0.00-0.20); BASOPHILS PERCENT AUTO 1.2 % (0.0-1.0); EOSINOPHILS ABSOLUTE AUTO 0.21 K/uL (0.00-0.45); HEMATOCRIT 40.8 % (42.0-52.0); HEMOGLOBIN 12.9 g/dL (14.0-18.0); IMMATURE GRAN ABSOLUTE AUTO 0.03 K/uL (0.00-0.05); IMMATURE GRAN PERCENT AUTO 0.3 % (0.0-0.4); LYMPHOCYTES ABSOLUTE AUTO 4.53 K/uL (1.00-4.80); LYMPHOCYTES PERCENT AUTO 43.5 % (24.0-44.0); MEAN CORPUSCULAR HEMOGLOBIN 24.9 pg (28.0-32.0); MEAN CORPUSCULAR HGB CONC 31.6 g/dL (32.0-36.0); MEAN CORPUSCULAR VOLUME 78.6 fL (83.0-99.0); MONOCYTES ABSOLUTE AUTO 1.17 K/uL (0.00-0.80); MONOCYTES PERCENT AUTO 11.2 % (0.0-8.0); NEUTROPHILS ABSOLUTE AUTO 4.36 K/uL (1.80-7.70); NEUTROPHILS PERCENT AUTO 41.8 % (41.0-71.0); PLATELET COUNT,PLT 342 K/uL (150-400); RED BLOOD CELL COUNT 5.19 M/uL (4.52-5.90); WHITE BLOOD CELL COUNT,WBC 10.42 K/uL (3.9-11.3)
[2023-07-20] MEDS: LORazepam 1 MG Tab PO ONE (11:45)
[2023-07-20] MEDS: Haloperidol Lactate 5 MG/ML SDV IM ONE ×2 (11:46→11:58)
[2023-07-20 11:55] LABS: A/G RATIO 0.9 (0.9-1.6); ALBUMIN 3.7 g/dL (3.4-5.0); BILIRUBIN TOTAL 0.7 mg/dL (0.2-1.0); CALCIUM 8.9 mg/dL (8.5-10.1); CARBON DIOXIDE,CO2 23.5 mmol/L (21.0-32.0); CREATININE 1.4 mg/dL (0.8-1.3); EST CRCL DRUG DOSING (CG) 68.85 mL/min; POTASSIUM,K 3.9 mmol/L (3.5-5.1); PROTEIN TOTAL,TP 7.6 g/dL (6.4-8.2)
[2023-07-20 14:40] LABS: CALCIUM 7.6 mg/dL (8.5-10.1); CREATININE 1.1 mg/dL (0.8-1.3); EST CRCL DRUG DOSING (CG) 87.63 mL/min; POTASSIUM,K 3.7 mmol/L (3.5-5.1)
[2023-07-20 15:20] VITALS: BP 123/82; PULSE 95
== END 2023-07-20 15:18 ==
LOC: MW.ED 10:49
DX: T75.4XXA Electrocution, initial encounter (principal); R07.9 Chest pain, unspecified; M62.82 Rhabdomyolysis; N17.9 Acute kidney failure, unspecified; I10 Essential (primary) hypertension; Z79.2 Long term (current) use of antibiotics; Z79.899 Other long term (current) drug therapy; Z75.8 Other problems related to medical facilities and other health care; X58.XXXA Exposure to other specified factors, initial encounter
CPT/HCPCS: 36415; 70450; 71045; 80048; 80053; 80307; 82550; 84484; 85025; 93005; 96361; 96372; 96374; 99285; A9270; J1630; J1885; J7030; 93010; 99284

== ENCOUNTER 2023-08-19 13:29 | Emergency (ER) | payer SELFPAY ==
[2023-08-19 14:01] VITALS: BP 168/117; PULSE 114
== END 2023-08-19 14:47 ==
LOC: MW.ED 13:29
DX: K04.7 Periapical abscess without sinus (principal); K02.9 Dental caries, unspecified; I10 Essential (primary) hypertension; Z75.8 Other problems related to medical facilities and other health care; Z91.013 Allergy to seafood; Z79.899 Other long term (current) drug therapy
CPT/HCPCS: 99283

== ENCOUNTER 2023-08-30 23:58 | Emergency (ER) | payer SELFPAY ==
[2023-08-31 00:21] LABS: BASOPHILS ABSOLUTE AUTO 0.11 K/uL (0.00-0.20); BASOPHILS PERCENT AUTO 1.1 % (0.0-1.0); EOSINOPHILS ABSOLUTE AUTO 0.14 K/uL (0.00-0.45); EOSINOPHILS PERCENT AUTO 1.4 % (0.0-6.0); HEMATOCRIT 41.9 % (42.0-52.0); IMMATURE GRAN ABSOLUTE AUTO 0.03 K/uL (0.00-0.05); IMMATURE GRAN PERCENT AUTO 0.3 % (0.0-0.4); LYMPHOCYTES ABSOLUTE AUTO 3.83 K/uL (1.00-4.80); LYMPHOCYTES PERCENT AUTO 38.8 % (24.0-44.0); MEAN CORPUSCULAR HEMOGLOBIN 24.8 pg (28.0-32.0); MEAN PLATELET VOLUME 9.1 fL (9.4-12.4); MONOCYTES ABSOLUTE AUTO 0.84 K/uL (0.00-0.80); MONOCYTES PERCENT AUTO 8.5 % (0.0-8.0); NEUTROPHILS ABSOLUTE AUTO 4.93 K/uL (1.80-7.70); NEUTROPHILS PERCENT AUTO 49.9 % (41.0-71.0); PLATELET COUNT,PLT 211 K/uL (150-400); RED BLOOD CELL COUNT 5.24 M/uL (4.52-5.90); WHITE BLOOD CELL COUNT,WBC 9.88 K/uL (3.9-11.3)
[2023-08-31] MEDS: Ibuprofen 600 MG Tab PO ONE (00:24)
[2023-08-31] MEDS: Acetaminophen 325 MG Tab PO ONE (00:24)
[2023-08-31 00:37] VITALS: BP 127/90; PULSE 78
[2023-08-31 00:43] LABS: A/G RATIO 1.1 (0.9-1.6); BILIRUBIN TOTAL 0.5 mg/dL (0.2-1.0); CARBON DIOXIDE,CO2 27.2 mmol/L (21.0-32.0); CREATININE 1.2 mg/dL (0.8-1.3); EST CRCL DRUG DOSING (CG) 88.9 mL/min; PROTEIN TOTAL,TP 7.5 g/dL (6.4-8.2)
== END 2023-08-31 01:04 ==
LOC: MW.ED 23:58
DX: I10 Essential (primary) hypertension (principal); Z91.013 Allergy to seafood; Z79.899 Other long term (current) drug therapy; Z75.8 Other problems related to medical facilities and other health care
CPT/HCPCS: 36415; 80053; 85025; 99284; A9270

== ENCOUNTER 2023-09-04 19:03 | Emergency (ER) | payer OTHER ==
[2023-09-04 19:51] LABS: BASOPHILS ABSOLUTE AUTO 0.07 K/uL (0.00-0.20); EOSINOPHILS ABSOLUTE AUTO 0.09 K/uL (0.00-0.45); EOSINOPHILS PERCENT AUTO 1.3 % (0.0-6.0); HEMOGLOBIN 13.2 g/dL (14.0-18.0); IMMATURE GRAN ABSOLUTE AUTO 0.02 K/uL (0.00-0.05); IMMATURE GRAN PERCENT AUTO 0.3 % (0.0-0.4); LYMPHOCYTES ABSOLUTE AUTO 2.75 K/uL (1.00-4.80); LYMPHOCYTES PERCENT AUTO 38.2 % (24.0-44.0); MEAN CORPUSCULAR HEMOGLOBIN 24.9 pg (28.0-32.0); MEAN CORPUSCULAR HGB CONC 31.4 g/dL (32.0-36.0); MEAN CORPUSCULAR VOLUME 79.2 fL (83.0-99.0); MEAN PLATELET VOLUME 9.1 fL (9.4-12.4); MONOCYTES ABSOLUTE AUTO 0.57 K/uL (0.00-0.80); MONOCYTES PERCENT AUTO 7.9 % (0.0-8.0); NEUTROPHILS ABSOLUTE AUTO 3.69 K/uL (1.80-7.70); NEUTROPHILS PERCENT AUTO 51.3 % (41.0-71.0); PLATELET COUNT,PLT 230 K/uL (150-400); WHITE BLOOD CELL COUNT,WBC 7.19 K/uL (3.9-11.3)
[2023-09-04 20:03] LABS: INR 1.14 (0.86-1.11)
[2023-09-04 20:18] LABS: A/G RATIO 1.2 (0.9-1.6); ALANINE AMINOTRANSFERASE,ALT 36 IU/L (14-63); ALBUMIN 4.2 g/dL (3.4-5.0); ALKALINE PHOSPHATASE 74 U/L (46-116); ASPARTATE AMNIOTRANSFERASE,AST 28 IU/L (15-37); BILIRUBIN TOTAL 0.7 mg/dL (0.2-1.0); BLOOD UREA NITROGEN,BUN 18 mg/dL (7.0-18.0); CALCIUM 9.1 mg/dL (8.5-10.1); CARBON DIOXIDE,CO2 29.3 mmol/L (21.0-32.0); CHLORIDE,CL 103 mmol/L (98-107); CREATININE 1.1 mg/dL (0.8-1.3); EST CRCL DRUG DOSING (CG) 96.98 mL/min; GLUCOSE RANDOM 122 mg/dL (74-106); POTASSIUM,K 4.6 mmol/L (3.5-5.1); PROTEIN TOTAL,TP 7.6 g/dL (6.4-8.2); SODIUM,NA 139 mmol/L (136-148)
[2023-09-04] MEDS: Lisinopril 10 MG Tab PO ONE (20:20)
[2023-09-04] MEDS: amLODIPine 5 MG Tab PO ONE (20:20)
[2023-09-04 20:21] LABS: ESTIMATED GFR 88 mL/min (>60)
[2023-09-05 06:03] VITALS: BP 162/90; PULSE 65
== END 2023-09-04 22:08 ==
LOC: MW.ED 19:03
DX: I10 Essential (primary) hypertension (principal); R51.9 Headache, unspecified; Z87.891 Personal history of nicotine dependence; Z79.899 Other long term (current) drug therapy; Z91.013 Allergy to seafood
CPT/HCPCS: 36415; 80053; 84484; 85025; 85610; 93005; 99284; A9270

== ENCOUNTER 2023-09-06 22:20 | Emergency (ER) | payer SELFPAY ==
[2023-09-06 22:28] VITALS: BP 143/117; PULSE 95
== END 2023-09-06 22:55 ==
LOC: MW.ED 22:20
DX: I10 Essential (primary) hypertension (principal); Z79.899 Other long term (current) drug therapy; Z91.013 Allergy to seafood; Z75.8 Other problems related to medical facilities and other health care
CPT/HCPCS: 99283

== ENCOUNTER 2023-09-13 22:49 | Emergency (ER) | payer SELFPAY ==
[2023-09-14] MEDS: Metoclopramide 10 MG/2 ML SDV IM ONE (00:51)
[2023-09-14 01:36] VITALS: BP 119/90; PULSE 73
== END 2023-09-14 01:36 ==
LOC: MW.ED 22:49
DX: I10 Essential (primary) hypertension (principal); Z79.899 Other long term (current) drug therapy; Z91.013 Allergy to seafood
CPT/HCPCS: 96372; 99284; J2765